=== PATIENT | female | born 1950 | race Caucasian/White ===

== ENCOUNTER 2019-05-08 05:51 | Inpatient (IN) | payer MEDICARE, OTHER ==
--- NOTE | 2019-05-03 14:40 | PCM.PREANE ---
Preanesthetic Assessment - Anesthesia/Transfusion/Family Hx Anesthesia History: Prior Anesthesia Without Reaction Family History of Anesthesia Reaction: No Transfusion History: No Prior Transfusion(s) Intubation History: Unknown - Review of Systems General: No Symptoms Pulmonary: No Symptoms ([id number] socially, has not used albuterol inhaler for over a year.) Cardiovascular: No Symptoms (History of HTN, Pacemaker, and atrial fibrillation- on eliquis(last dose:05/05/2019 ), History of nonischemic cardiomyopathy( echocardiogram EF=45%, History of pulmonary hypertension, History of ostium secundum atrial septal defect s/p clsure with Amplater device in 2002) Gastrointestinal: No Symptoms (GERD-controlled) Neurological: No Symptoms, Headache (Migraines) Other: Reports: Easy Bleeding, Easy Bruising, Sinus Problem (seasonal allergies) - Physical Assessment NPO Status Date: 05/07/19 NPO Status Time: 18:00 Vital Signs: HR: BP: Resp: Temp: Sat: Height: 1.78 m Weight: 119 kg ASA Class: 3 Mental Status: Alert & Oriented x3 Airway Class: Mallampati = 2 Dentition: Reports: Normal Dentition, Caries Thyro-Mental Finger Breadths: 3 Mouth Opening Finger Breadths: 3 ROM/Head Extension: Full Lungs: Clear to Auscultation, Normal Respiratory Effort Cardiovascular: Regular Rate, Regular Rhythm, No Murmurs - Lab Values: Laboratory Last Values MRSA (PCR) Negative 04/25/19 11:27 All labs reviewed and noted and within acceptable ranges to proceed with scheduled procedure. - Imaging/EKG Impressions: EKG:Ventricularly paced rate= 70. Echocardiogram:EF= 45%, Moderate tricuspid valve regurgitation, severe biatrial dilation. CXR: Mild cardiomegaly, small hiatal hernia, pacemaker noted. - Allergies Allergies/Adverse Reactions: Allergies Allergy/AdvReac Type Severity Reaction Status Date / Time cephalexin Allergy Rash Verified 05/04/19 11:26 codeine Allergy Other Verified 05/04/19 11:26 hydrocodone Allergy Other Verified 05/04/19 11:26 modafinil [From Provigil] Allergy Other Verified 05/04/19 11:26 mupirocin Allergy Other Verified 05/04/19 11:26 oxycodone Allergy Other Verified 05/04/19 11:26 pramipexole Allergy Cannot Verified 05/04/19 11:26 Remember ropinirole Allergy Cannot Verified 05/04/19 11:26 Remember Sulfa (Sulfonamide Allergy Rash Verified 05/04/19 11:27 Antibiotics) - Anesthesia Plan Pre-Op Medication Ordered: Beta Nikhil Beta Nikhil: Metoprolol Med Last Dose Date: 05/08/19 Med Last Dose Time: 04:10 - Acknowledgements Anesthesia Type Planned: General Anesthesia, Spinal (Right adductor canal block under US guidance for post operative pain control requested by Dr. Jimenes.) Pt an Appropriate Candidate for the Planned Anesthesia: Yes Alternatives and Risks of Anesthesia Discussed w Pt/Guardian: Yes Pt/Guardian Understands and Agrees with Anesthesia Plan: Yes PreAnesthesia Questionnaire HEENT History: Reports: Allergic Rhinitis Cardiovascular History: Reports: Afib, Cardiomyopathy, Congenital Septal Defect , Hypertension, Pacemaker, Pulmonary Hypertension Respiratory History: Reports: Sleep Apnea Gastrointestinal History: Reports: GERD Musculoskeletal History: Reports: Osteoarthritis - Past Surgical History HEENT Surgical History: Reports: Tonsillectomy Cardiovascular Surgical History: Reports: Pacer, Other (See Below) (Repair of congenital septal defect) GI Surgical History: Reports: Appendectomy Female Surgical History: Reports: Hysterectomy, Tubal Ligation - HOME MEDS Home Medications: Home Meds Acetaminophen [Tylenol Arthritis] 650 mg PO DAILY 05/04/19 [History] Amoxicillin 500 mg PO ASDIRECTED PRN 05/04/19 [History] Apixaban [Eliquis] 5 mg PO BID 05/04/19 [History] Famotidine [Pepcid] 20 mg PO BEDTIME 05/04/19 [History] Loratadine [Claritin] 10 mg PO DAILY 05/04/19 [History] Melatonin 10 mg PO 1900 05/04/19 [History] Metoprolol Succinate 25 mg PO DAILY 05/04/19 [History] Pantoprazole Sodium [Protonix] 40 mg PO DAILY 05/04/19 [History] SUMAtriptan [Imitrex] 25 mg PO ASDIRECTED PRN 05/04/19 [History] Vitamin B Complex 1 tab PO DAILY 05/04/19 [History] atorvaSTATin [Lipitor] 10 mg PO BEDTIME 05/04/19 [History] - CURRENT (IN HOUSE) MEDS Current Meds: Current Medications Lactated Ringer's (Ringers, Lactated) 1,000 mls @ 125 mls/hr IV ASDIRECTED SARATH Lidocaine/Sodium Bicarbonate (Buffered Lidocaine 1% In Ns 8.4%) 0.25 ml IDERM ONETIME PRN PRN Reason: Prior to IV Start Sodium Chloride (Saline Flush) 10 ml FLUSH ASDIRECTED PRN PRN Reason: Keep Vein Open
[~2019-05-08 05:51] MED LIST: Albuterol 0.083% 2.5 MG/3 ML Neb Soln NEB ONE; Lactated Ringers 1,000 ML IV SCH; Lidocaine 1%/Sod Bicarbonate in NS 8.4% 1 ML Syringe IDERM PRN; Sodium Chloride 0.9% 10 ML Syringe FLUSH PRN
[2019-05-08] MEDS ORDERED: Bisacodyl 5 MG Tab PO PRN (06:45)
[2019-05-08] MEDS ORDERED: Sennosides 8.6 MG Tab PO PRN (06:45)
[2019-05-08] MEDS ORDERED: Naloxone 0.4 MG/ML SDV IVPUSH PRN (06:45)
[2019-05-08] MEDS ORDERED: Magnesium Hydroxide 400 MG/5 ML Susp 30 ML Cup PO PRN (06:45)
[2019-05-08] MEDS ORDERED: Ondansetron 4 MG/2 ML SDV IVPUSH PRN ×2 (06:45→07:37)
[2019-05-08] MEDS ORDERED: fentaNYL 100 MCG/2 ML SDV IVPUSH PRN (07:37)
[2019-05-08] MEDS ORDERED: ePHEDrine 50 MG/ML SDV IVPUSH PRN (07:37)
[2019-05-08] MEDS ORDERED: HYDROmorphone 0.5 MG/0.5 ML Syringe IVPUSH PRN (07:37)
[2019-05-08] MEDS ORDERED: diphenhydrAMINE 50 MG/ML SDV IVPUSH PRN (07:37)
[2019-05-08] MEDS ORDERED: Morphine 8 MG, EPINEPHrine 0.3 MG, Cefuroxime 750 MG, Ketorolac 30 MG, Sodium Chloride ... ONE ×5 (07:45)
[2019-05-08] MEDS ORDERED: Phenylephrine 1 MG in Sodium Chloride 0.9% 10 ML IV SCH (07:45)
--- NOTE | 2019-05-08 09:06 | PCM.POSTAN ---
POST ANESTHESIA ASSESSMENT - MENTAL STATUS Mental Status: Alert - VITAL SIGNS Vital Signs: Last Vital Signs Temp 98.0f 05/08/19 08 Pulse 71 05/08/19 0856 Resp 14 05/08/19 0856 BP 110/57 05/08/19 0856 Pulse Ox 94% 05/08/19 08 - RESPIRATORY Respiratory Status: Respiratory Rate WNL, Airway Patent, O2 Saturation Stable, Supplemental Oxygen - CARDIOVASCULAR CV Status: Pulse Rate WNL, Blood Pressure Stable - GASTROINTESTINAL GI Status: No Symptoms - POST OP HYDRATION Hydration Status: Adequate & Stable
--- NOTE | 2019-05-08 09:44 | PCM.SN ---
- Free Text/Narrative Note: Right selective femoral nerve block at the adductor canal for post-procedure pain control under US guidance requested by Dr. Jimenes. Time Out: 908 Start: 908 End: 916 Chart reviewed. Consent signed. Questions answered. Appropriate monitors applied. Time out performed. Right mid-shaft femur identified with ultrasound, scanning medially of femur, the femoral artery in the adductor canal visualized , and the femoral nerve located laterally to the artery. The skin was prepped lateral to the ultrasound probe with chlorahexadine times two. The 21ga 4 insulated block needle was inserted under direct ultrasound guidance into the adductor canal. 25mL of 0.5% ropivacaine with 1:200,000 epinephrine was injected circumferentially around the nerve with intermittent negative aspiration noted. Patient tolerated the procedure well. Sterile technique noted along with sterile gloves, mask, and sterile probe cover. See picture on progress note and vital signs on nurses notes. Block completed in PACU. Raisa Vasquez CRNA
[2019-05-08] MEDS: Ketorolac 15 MG/ML SDV IVPUSH PRN ×2 (11:05→22:54)
[2019-05-08] MEDS: Cyclobenzaprine 10 MG Tab PO PRN (11:05)
[2019-05-08] MEDS: Morphine 2 MG/ML Syringe IVPUSH PRN ×3 (12:33→20:21)
[2019-05-08] MEDS: Acetaminophen 325 MG Tab PO PRN ×2 (12:35→18:39)
[2019-05-08] MEDS: ceFAZolin 2 GM in Premix Bag 1 BAG IV SCH ×2 (14:39→22:55)
[2019-05-08] MEDS ORDERED: SUMAtriptan 50 MG Tab PO PRN (14:42)
[2019-05-08] MEDS ORDERED: AMOXICILLIN 500 MG PO PRN (14:42)
--- NOTE | 2019-05-08 16:36 | PCM.CONS ---
H&P History of Present Illness - General Date of Service: 05/08/19 Admit Problem/Dx: Admission Diagnosis/Problem Admission Diagnosis/Problem Osteoarthritis of knee Source of Information: Patient History Limitations: Reports: No Limitations - History of Present Illness Initial Comments - Free Text/Narative: The hospitalist medical service was consulted on this 68-year old female post right total knee arthroplasty. Medical conditions include chronic atrial fibrillation with an AV navneet ablation with single-chamber pacemaker implantation at [facility] due to difficult rate control in 2003, on Eliquis, non- ischemic cardiomyopathy, not on an LUIS/ARB due to hypotension, dyslipidemia, ostium second atrial septal defect S/P closure with Amplatzer device in [address] [facility], pulmonary hypertension, ARAVIND on CPAP, chronic lower extremity edema , bilateral knee osteoarthritis. Lis is without any complaints other than right knee pain post surgery. Eliquis was held 2 days prior to surgery per her metal fabricating inspector Dr. Herman. Per his notes her functional status is probably around 5 METS and her overall cardiac risk is low. EKG showed a ventricular paced rhythm at 70 bpm. Echocardiogram on May 03, 2019: 1. Left ventricular ejection fraction, by visual estimation, is 45%. 2. Mildly decreased and global left ventricular systolic function. 3. The left ventricular internal cavity size is dilated in systole. 4. No aortic valve stenosis. 5. Mild mitral valve regurgitation. 6. Moderate tricuspid valve regurgitation. 7. The right ventricular systolic pressure is borderline at 37.2 mmHg. 8. A pacer wire is visualized in the right ventricle. 9. There is severe biatrial dilatation. Right Knee Pain Score (Numeric/FACES): 0 - Related Data Allergies/Adverse Reactions: Allergies Allergy/AdvReac Type Severity Reaction Status Date / Time cephalexin Allergy Rash Verified 05/08/19 08:03 pramipexole Allergy Cannot Verified 05/04/19 11:26 Remember ropinirole Allergy Cannot Verified 05/04/19 11:26 Remember Sulfa (Sulfonamide Allergy Rash Verified 05/04/19 11:27 Antibiotics) codeine AdvReac Other Verified 05/08/19 08:04 hydrocodone AdvReac Other Verified 05/08/19 08:04 modafinil [From Provigil] AdvReac Other Verified 05/08/19 08:04 mupirocin AdvReac Other Verified 05/08/19 08:04 oxycodone AdvReac Other Verified 05/08/19 08:04 Home Medications: Home Meds Acetaminophen [Tylenol Arthritis] 650 mg PO DAILY PRN 05/04/19 [History] Amoxicillin 500 mg PO ASDIRECTED PRN 05/04/19 [History] Apixaban [Eliquis] 5 mg PO BID 05/04/19 [History] Famotidine [Pepcid] 20 mg PO BEDTIME 05/04/19 [History] Loratadine [Claritin] 10 mg PO DAILY 05/04/19 [History] Melatonin 10 mg PO 1900 05/04/19 [History] Metoprolol Succinate 25 mg PO DAILY 05/04/19 [History] Pantoprazole Sodium [Protonix] 40 mg PO DAILY 05/04/19 [History] SUMAtriptan [Imitrex] 25 mg PO ASDIRECTED PRN 05/04/19 [History] Vitamin B Complex 2 tab PO DAILY 05/04/19 [History] atorvaSTATin [Lipitor] 10 mg PO BEDTIME 05/04/19 [History] Past Medical History HEENT History: Reports: Allergic Rhinitis Cardiovascular History: Reports: Afib, Cardiomyopathy, Congenital Septal Defect , Hypertension, Pacemaker, Pulmonary Hypertension Other Cardiovascular History: Non-ischemic cardiomyopathy, chronic lower extremity edema Respiratory History: Reports: Bronchitis, Recurrent, Pneumonia, Recurrent, Sleep Apnea Other Respiratory History: gets pneumonia and bronchitis every year Gastrointestinal History: Reports: GERD Other Gastrointestinal History: Biju's esophagus, gatric ulcer Genitourinary History: Reports: None Other OB/BYN History: Vaginal atrophy Musculoskeletal History: Reports: Osteoarthritis Neurological History: Reports: Migraines, Other (See Below) Other Neuro History: Restless leg syndrome Psychiatric History: Reports: Other (See Below) Other Psychiatric History: Insomnia Endocrine/Metabolic History: Reports: Other (See Below) Other Endocrine/Metabolic History: Left thyroid nodule Hematologic History: Reports: None Immunologic History: Reports: None Oncologic (Cancer) History: Reports: None Dermatologic History: Reports: None - Past Surgical History Head Surgeries/Procedures: Reports: None HEENT Surgical History: Reports: Naso-Sinus Surgery, Tonsillectomy Cardiovascular Surgical History: Reports: Pacer, Other (See Below) Other Cardiovascular Surgeries/Procedures: Ostium secundum atrial septal defect s/p closure with Amplatzer device in [address] [facility] GI Surgical History: Reports: Appendectomy, Colonoscopy Other GI Surgeries/Procedures: Inguinal hernia repair Female Surgical History: Reports: Hysterectomy, Tubal Ligation Endocrine Surgical History: Reports: None Neurological Surgical History: Reports: None Oncologic Surgical History: Reports: None Dermatological Surgical History: Reports: None Social & Family History - Tobacco Use Smoking Status *Q: Never Smoker Second Hand Smoke Exposure: No - Caffeine Use Caffeine Use: Reports: None Caffeine Use Comment: Patient states it makes her heart race - Recreational Drug Use Recreational Drug Use: No Drug Use in Last 12 Months: No H&P Review of Systems - Review of Systems: Review Of Systems: ROS reveals no pertinent complaints other than HPI. Exam - Exam Exam: See Below - Vital Signs Vital Signs: Last Vital Signs Temp 97.3 F 05/08/19 10:04 Pulse 72 05/08/19 13:02 Resp 16 05/08/19 10:04 BP 119/51 L 05/08/19 13:30 Pulse Ox 93 L 05/08/19 13:02 Weight: 261 lb - Exam Quality Assessment: No: Supplemental Oxygen General: Alert, Oriented HEENT: Conjunctiva Clear, Mucosa Moist & [place] Neck: Supple, Trachea Midline Lungs: Clear to Auscultation, Normal Respiratory Effort Cardiovascular: Regular Rate, Regular Rhythm, Normal S1, Normal S2 GI/Abdominal Exam: Normal Bowel Sounds, Soft, Non-Tender, No Organomegaly, No Distention, No Abnormal Bruit, No Mass Extremities: Other (right knee and leg in luis wrap; SCDs in place) Neuro Extensive - Mental Status: Alert, Oriented x3 Neuro Extensive - Motor, Sensory, Reflexes: CN II-XII Intact Psychiatric: Alert, Normal Affect, Normal Mood - Patient Data Lab Results Last 24 hrs: Laboratory Results - last 24 hr 05/08/19 Range/Units 06:22 APTT 26 (22-31) SECONDS Consult PN Assessment/Plan Procedures: Procedures ASSAY OF FREE THYROXINE (04/11/19) ASSAY OF MAGNESIUM (04/11/19) ASSAY THYROID STIM HORMONE (04/11/19) C-REACTIVE PROTEIN (12/27/17) CHEST X-RAY 2VW FRONTAL&LATL (01/28/17) COMPLETE CBC W/AUTO DIFF WBC (04/11/19) COMPREHEN METABOLIC PANEL (04/11/19) CULTURE SCREEN ONLY (06/07/17) EMERGENCY DEPT VISIT (05/03/14) INFLUENZA A/B AG IA (08/08/14) LIPID PANEL (04/11/19) POLYSOM 6/> YRS 4/> MIGUELANGEL (10/02/17) POLYSOM 6/>YRS CPAP 4/> PARM (12/13/13) PROTHROMBIN TIME (04/11/19) ROUTINE VENIPUNCTURE (04/11/19) STREP A AG IA (06/07/17) THROMBOPLASTIN TIME PARTIAL (07/22/14) TTE W/DOPPLER COMPLETE (05/03/19) URINALYSIS AUTO W/SCOPE (02/03/18) URINE CULTURE/COLONY COUNT (02/03/18) US EXAM OF HEAD AND NECK (08/11/17) X-RAY EXAM CHEST 2 VIEWS (04/11/19) Problem List Initiated/Reviewed/Updated: Yes Plan: Assessment * 58-year-old female post right total knee replacement * Medical conditions include chronic atrial fibrillation with an AV navneet ablation with single-chamber pacemaker implantation at [facility] due to difficult rate control in 2003, on Eliquis, non-ischemic cardiomyopathy, not on an LUIS/ ARB due to hypotension, dyslipidemia, ostium second atrial septal defect S/P closure with Amplatzer device in [address] [facility], pulmonary hypertension, ARAVIND on CPAP, chronic lower extremity edema, bilateral knee osteoarthritis. Plan * Monitor patient on telemetry. * Restart Eliquis as soon as possible per primary care team. * Restart home meds. * Hospitalist service will follow closely. * pain medication per primary orthopedic team * Incentive spirometry to bedside. * Thank you for allowing us to help care for this patient. Requesting Provider: Yudy Date Consult Requested: 05/08/19 Reason for Consult: a-fib, ARAVIND, hx ASD closed in 2002 at [facility], pacemaker, LV EF 45-50 Patient History Reviewed: Yes Admission H&P Reviewed: Yes Notified Requestor: Yes
[2019-05-08] MEDS ORDERED: Melatonin 3 MG Tab PO SCH (19:00)
[2019-05-08] MEDS: Docusate Sodium 100 MG Cap PO SCH (20:21)
[2019-05-08] MEDS ORDERED: Famotidine 20 MG Tab PO SCH ×2 (21:00)
[2019-05-09] MEDS: Ketorolac 15 MG/ML SDV IVPUSH PRN (05:00)
[2019-05-09] MEDS: Cyclobenzaprine 10 MG Tab PO PRN (05:01)
[2019-05-09] MEDS: ceFAZolin 2 GM in Premix Bag 1 BAG IV SCH ×2 (06:10→06:39)
--- NOTE | 2019-05-09 08:08 | PCM48HPAN ---
Post Anesthesia Note - EVALUATION WITHIN 48HRS OF ANESTHETIC Vital Signs in Normal Range: Yes Patient Participated in Evaluation: Yes Respiratory Function Stable: Yes Airway Patent: Yes Cardiovascular Function Stable: Yes Hydration Status Stable: Yes Pain Control Satisfactory: No (pt states pain 8 out of 10, ultrasound present looking at right leg) Nausea and Vomiting Control Satisfactory: Yes Mental Status Recovered: Yes Vital Signs: Last Vital Signs Temp 36.8 C 05/09/19 01:50 Pulse 74 05/09/19 01:50 Resp 16 05/09/19 01:50 BP 122/90 05/09/19 01:50 Pulse Ox 92 L 05/09/19 02:35
[2019-05-09] MEDS ORDERED: Vitamin B Complex With Vitamin C Cap PO SCH (09:00)
[2019-05-09] MEDS ORDERED: Pantoprazole 40 MG Tab.CR PO SCH (09:00)
[2019-05-09] MEDS ORDERED: Loratadine 10 MG Tab PO SCH (09:00)
[2019-05-09] MEDS ORDERED: Metoprolol Succinate 25 MG Tab.ER PO SCH (09:00)
[2019-05-09] MEDS ORDERED: Apixaban 5 MG Tab PO SCH (09:00)
--- NOTE | 2019-05-09 09:04 | US ---
Right lower extremity deep venous ultrasound: Duplex and color flow imaging was obtained of the right common femoral, proximal greater saphenous, superficial femoral, popliteal, posterior tibial and peroneal veins. Left common femoral vein was also evaluated. Normal phasic flow, augmentation and compression is seen. Impression: 1. No evidence of deep venous thrombosis within the right lower extremity or within the left common femoral vein. Diagnostic code #1
[2019-05-09] MEDS: Acetaminophen 325 MG Tab PO PRN (09:24)
[2019-05-09] MEDS: Docusate Sodium 100 MG Cap PO SCH (09:25)
--- NOTE | 2019-05-09 09:30 | PCM.SURGPN ---
- General Info Date of Service: 05/09/19 POD#: 1 Functional Status: Reports: Tolerating Diet, Ambulating, Urinating, Incentive Spirometry, Other (Pt very concerned re: "blood clot" at RLE as she notes pain at right popliteal space.) - Patient Data Vitals - Most Recent: Last Vital Signs Temp 98.1 F 05/09/19 09:21 Pulse 82 05/09/19 09:25 Resp 14 05/09/19 09:21 BP 129/61 05/09/19 09:25 Pulse Ox 95 05/09/19 09:22 Weight - Most Recent: 270 lb 11.2 oz I&O - Last 24 Hours: Intake & Output 05/08/19 05/09/19 05/09/19 22:59 06:59 14:59 Intake Total 2450 450 Output Total 500 200 Balance 1950 250 Lab Results Last 24 Hrs: Laboratory Results - last 24 hr 05/09/19 05/09/19 Range/Units 05:26 05:26 WBC 7.00 (3.98-10.04) K/mm3 RBC 3.67 L (3.98-5.22) M/mm3 Hgb 11.3 D (11.2-15.7) gm/dl Hct 34.2 (34.1-44.9) % MCV 93.2 (79.4-94.8) fl MCH 30.8 (25.6-32.2) pg MCHC 33.0 (32.2-35.5) g/dl RDW Std Deviation 44.6 (36.4-46.3) fL Plt Count 143 L (182-369) K/mm3 MPV 10.4 (9.4-12.3) fl Sodium 137 (136-145) mEq/L Potassium 4.2 (3.5-5.1) mEq/L Chloride 103 (98-107) mEq/L Carbon Dioxide 27 (21-32) mEq/L Anion Gap 11.2 (5-15) BUN 17 (7-18) mg/dL Creatinine 0.9 (0.55-1.02) mg/dL Est Cr Clr Drug Dosing 66.49 mL/min Estimated GFR (MDRD) > 60 (>60) mL/min BUN/Creatinine Ratio 18.9 H (14-18) Glucose 116 H (80-115) mg/dL Calcium 9.0 (8.5-10.1) mg/dL Total Bilirubin 0.6 (0.2-1.0) mg/dL AST 20 (15-37) U/L ALT 19 (14-59) U/L Alkaline Phosphatase 70 (46-116) U/L Total Protein 6.2 L (6.4-8.2) g/dl Albumin 3.2 L (3.4-5.0) g/dl Globulin 3.0 gm/dL Albumin/Globulin Ratio 1.1 (1-2) Med Orders - Current: Current Medications Acetaminophen (Tylenol) 650 mg PO Q4H PRN PRN Reason: Pain Last Admin: 05/09/19 09:24 Dose: 650 mg Apixaban (Eliquis) 5 mg PO BID [facility] Last Admin: 05/09/19 09:25 Dose: 5 mg Bisacodyl (Dulcolax) 5 mg PO DAILY PRN PRN Reason: Constipation Cyclobenzaprine HCl (Flexeril) 10 mg PO TID PRN PRN Reason: Spasms Last Admin: 05/09/19 05:01 Dose: 10 mg Docusate Sodium (Colace) 100 mg PO BID [facility] Last Admin: 05/09/19 09:25 Dose: 100 mg Famotidine (Pepcid) 20 mg PO BEDTIME [facility] Last Admin: 05/08/19 20:20 Dose: 20 mg Loratadine (Claritin) 10 mg PO DAILY [facility] Last Admin: 05/09/19 09:25 Dose: 10 mg Magnesium Hydroxide (Milk Of Magnesia) 30 ml PO BID PRN PRN Reason: Constipation Melatonin (Melatonin) 9 mg PO 1900 [facility] Last Admin: 05/08/19 18:39 Dose: 9 mg Metoprolol Succinate (Toprol Xl) 25 mg PO DAILY [facility] Last Admin: 05/09/19 09:25 Dose: 25 mg Morphine Sulfate (Morphine) 2 mg IVPUSH Q2H PRN PRN Reason: Pain Last Admin: 05/08/19 20:21 Dose: 2 mg Naloxone HCl (Narcan) 0.1 mg IVPUSH Q5M PRN PRN Reason: Oversedation Ondansetron HCl (Zofran) 4 mg IVPUSH Q6H PRN PRN Reason: Nausea/Vomiting Pantoprazole Sodium (Protonix) 40 mg PO DAILY [facility] Last Admin: 05/09/19 09:25 Dose: 40 mg Senna (Senna) 8.6 mg PO BID PRN PRN Reason: Constipation Sodium Chloride (Saline Flush) 10 ml FLUSH ASDIRECTED PRN PRN Reason: Keep Vein Open Sumatriptan Succinate (Imitrex) 25 mg PO ASDIRECTED PRN PRN Reason: Migraine Tapentadol (Nucynta) 50 - 100 mg PO Q4H PRN PRN Reason: Pain Last Admin: 05/09/19 06:09 Dose: 100 mg Vitamin B Complex/Vitamin C (Super B With Vitamin C) 2 cap PO DAILY [facility] Last Admin: 05/09/19 09:25 Dose: 2 cap Discontinued Medications Albuterol (Proventil Neb Soln) 2.5 mg NEB ONETIME ONE Stop: 05/08/19 00:02 Last Admin: 05/08/19 13:10 Dose: Not Given Morphine Sulfate 8 mg/Epinephrine HCl 0.3 mg/Cefuroxime Sodium 750 mg/Ketorolac Tromethamine 30 mg/Sodium Chloride 27.9 ml 0 mg .XX ONETIME ONE Stop: 05/08/19 07:46 Last Admin: 05/08/19 13:10 Dose: Not Given Diphenhydramine HCl (Benadryl) 25 mg IVPUSH Q6H PRN PRN Reason: pruritis Stop: 05/08/19 11:00 Ephedrine Sulfate (Ephedrine Sulfate) 5 mg IVPUSH ASDIRECTED PRN PRN Reason: Hypotension Stop: 05/08/19 11:00 Famotidine (Pepcid) 20 mg PO Q12H [facility] Fentanyl (Sublimaze) 50 mcg IVPUSH Q5M PRN PRN Reason: Pain Stop: 05/08/19 11:00 Hydromorphone HCl (Dilaudid) 0.5 mg IVPUSH Q15M PRN PRN Reason: Pain (severe 7-10) Stop: 05/08/19 11:00 Lactated Ringer's (Ringers, Lactated) 1,000 mls @ 125 mls/hr IV ASDIRECTED [facility] Last Admin: 05/08/19 06:25 Dose: 125 mls/hr Cefazolin Sodium/Dextrose 2 gm (/ Premix) 50 mls @ 100 mls/hr IV Q8H [facility] Stop: 05/09/19 07:59 Last Admin: 05/09/19 06:39 Dose: Not Given Phenylephrine HCl 1 mg/ Sodium (Chloride) 10.1 mls @ 1 mls/sec IV TITRATE SARATH; Protocol Stop: 05/08/19 11:00 Ketorolac Tromethamine (Toradol) 15 mg IVPUSH Q6H PRN PRN Reason: Pain Last Admin: 05/09/19 05:00 Dose: 15 mg Lidocaine/Sodium Bicarbonate (Buffered Lidocaine 1% In Ns 8.4%) 0.25 ml IDERM ONETIME PRN PRN Reason: Prior to IV Start Last Admin: 05/08/19 06:24 Dose: 0.25 ml Non-Formulary Medication (Amoxicillin [Amoxicillin]) 500 mg PO ASDIRECTED PRN PRN Reason: Other Ondansetron HCl (Zofran) 4 mg IVPUSH ONETIME PRN PRN Reason: Nausea/Vomiting Stop: 05/08/19 11:00 - Exam Wound/Incisions: Other (A few small areas of dried blood noted on Mepilex and area outlined by nurse.) General: Alert, Cooperative, No Acute Distress Lungs: Normal Respiratory Effort Extremities: Other (NVS intact for RLE. Yakov's negative for RLE. Tenderness noted at right lateral hamstring and popliteal space.) - Problem List Review Problem List Initiated/Reviewed/Updated: Yes - My Orders Last 24 Hours: Active Orders 24 hr Category Date Time Status Patient Status [ADT] Routine ADT 05/08/19 16:13 Active Ready for Discharge [RC] PER UNIT ROUTINE Care 05/09/19 07:37 Active Regular Diet [DIET] Diet 05/08/19 Lunch Active Acetaminophen [Tylenol] Med 05/08/19 12:28 Active 650 mg PO Q4H PRN Apixaban [Eliquis] Med 05/09/19 09:00 Active 5 mg PO BID Docusate Sodium [Colace] Med 05/08/19 21:00 Active 100 mg PO BID Famotidine [Pepcid] Med 05/08/19 21:00 Active 20 mg PO BEDTIME Loratadine [Claritin] Med 05/09/19 09:00 Active 10 mg PO DAILY Melatonin Med 05/08/19 19:00 Active 9 mg PO 1900 Metoprolol Succinate [Toprol XL] Med 05/09/19 09:00 Active 25 mg PO DAILY Morphine Med 05/08/19 12:20 Active 2 mg IVPUSH Q2H PRN Pantoprazole [ProTONIX] Med 05/09/19 09:00 Active 40 mg PO DAILY SUMAtriptan [Imitrex] Med 05/08/19 14:42 Active 25 mg PO ASDIRECTED PRN Vitamin B Complex with C [Super B With Vitamin C] Med 05/09/19 09:00 Active 2 cap PO DAILY Resuscitation Status Routine Resus Stat 05/08/19 11:23 Ordered Medication Orders Acetaminophen (Tylenol) 650 mg PO Q4H PRN PRN Reason: Pain Last Admin: 05/09/19 09:24 Dose: 650 mg Admin: 05/08/19 18:39 Dose: 650 mg Admin: 05/08/19 12:35 Dose: 650 mg Apixaban (Eliquis) 5 mg PO BID [facility] Last Admin: 05/09/19 09:25 Dose: 5 mg Bisacodyl (Dulcolax) 5 mg PO DAILY PRN PRN Reason: Constipation Cyclobenzaprine HCl (Flexeril) 10 mg PO TID PRN PRN Reason: Spasms Last Admin: 05/09/19 05:01 Dose: 10 mg Admin: 05/08/19 11:05 Dose: 10 mg Docusate Sodium (Colace) 100 mg PO BID [facility] Last Admin: 05/09/19 09:25 Dose: 100 mg Admin: 05/08/19 20:21 Dose: 100 mg Famotidine (Pepcid) 20 mg PO BEDTIME [facility] Last Admin: 05/08/19 20:20 Dose: 20 mg Loratadine (Claritin) 10 mg PO DAILY [facility] Last Admin: 05/09/19 09:25 Dose: 10 mg Magnesium Hydroxide (Milk Of Magnesia) 30 ml PO BID PRN PRN Reason: Constipation Melatonin (Melatonin) 9 mg PO 1900 [facility] Last Admin: 05/08/19 18:39 Dose: 9 mg Metoprolol Succinate (Toprol Xl) 25 mg PO DAILY [facility] Last Admin: 05/09/19 09:25 Dose: 25 mg Morphine Sulfate (Morphine) 2 mg IVPUSH Q2H PRN PRN Reason: Pain Last Admin: 05/08/19 20:21 Dose: 2 mg Admin: 05/08/19 15:26 Dose: 2 mg Admin: 05/08/19 12:33 Dose: 2 mg Naloxone HCl (Narcan) 0.1 mg IVPUSH Q5M PRN PRN Reason: Oversedation Ondansetron HCl (Zofran) 4 mg IVPUSH Q6H PRN PRN Reason: Nausea/Vomiting Pantoprazole Sodium (Protonix) 40 mg PO DAILY [facility] Last Admin: 05/09/19 09:25 Dose: 40 mg Senna (Senna) 8.6 mg PO BID PRN PRN Reason: Constipation Sodium Chloride (Saline Flush) 10 ml FLUSH ASDIRECTED PRN PRN Reason: Keep Vein Open Sumatriptan Succinate (Imitrex) 25 mg PO ASDIRECTED PRN PRN Reason: Migraine Tapentadol (Nucynta) 50 - 100 mg PO Q4H PRN PRN Reason: Pain Last Admin: 05/09/19 06:09 Dose: 100 mg Admin: 05/09/19 01:25 Dose: 100 mg Vitamin B Complex/Vitamin C (Super B With Vitamin C) 2 cap PO DAILY [facility] Last Admin: 05/09/19 09:25 Dose: 2 cap - Assessment Assessment (Free Text/Narrative):: POD#1 - right TKA - Plan Plan (Free Text/Narrative):: 1. Resume use of Eliquis BID. Frequent mobility, TEDs. 2. Discharge to home today if cleared by Hospitalist service. 3. RLE venous doppler completed today as pt very concerned re: "blood clot". Doppler negative for VTE. 4. Hgb 11.3. 5. The pt is aware of cost of Nucynta. She reports allergy to other pain medications. The pt's case was discussed with Dr. Jimenes.
--- NOTE | 2019-05-09 12:10 | PCM.CONSN ---
- General Info Date of Service: 05/09/19 Admission Dx/Problem (Free Text): Admission Diagnosis/Problem Admission Diagnosis/Problem Osteoarthritis of knee - Review of Systems General: Reports: No Symptoms HEENT: Reports: No Symptoms Pulmonary: Reports: No Symptoms Cardiovascular: Reports: No Symptoms Gastrointestinal: Reports: No Symptoms - Patient Data Vitals - Most Recent: Last Vital Signs Temp 98.1 F 05/09/19 09:21 Pulse 82 05/09/19 09:25 Resp 14 05/09/19 09:21 BP 129/61 05/09/19 09:25 Pulse Ox 95 05/09/19 09:22 Weight - Most Recent: 270 lb 11.2 oz I&O - Last 24 Hours: Intake & Output 05/08/19 05/09/19 05/09/19 22:59 06:59 14:59 Intake Total 2450 450 120 Output Total 500 200 Balance 1950 250 120 Lab Results Last 24 Hours: Laboratory Results - last 24 hr 05/09/19 05/09/19 Range/Units 05:26 05:26 WBC 7.00 (3.98-10.04) K/mm3 RBC 3.67 L (3.98-5.22) M/mm3 Hgb 11.3 D (11.2-15.7) gm/dl Hct 34.2 (34.1-44.9) % MCV 93.2 (79.4-94.8) fl MCH 30.8 (25.6-32.2) pg MCHC 33.0 (32.2-35.5) g/dl RDW Std Deviation 44.6 (36.4-46.3) fL Plt Count 143 L (182-369) K/mm3 MPV 10.4 (9.4-12.3) fl Sodium 137 (136-145) mEq/L Potassium 4.2 (3.5-5.1) mEq/L Chloride 103 (98-107) mEq/L Carbon Dioxide 27 (21-32) mEq/L Anion Gap 11.2 (5-15) BUN 17 (7-18) mg/dL Creatinine 0.9 (0.55-1.02) mg/dL Est Cr Clr Drug Dosing 66.49 mL/min Estimated GFR (MDRD) > 60 (>60) mL/min BUN/Creatinine Ratio 18.9 H (14-18) Glucose 116 H (80-115) mg/dL Calcium 9.0 (8.5-10.1) mg/dL Total Bilirubin 0.6 (0.2-1.0) mg/dL AST 20 (15-37) U/L ALT 19 (14-59) U/L Alkaline Phosphatase 70 (46-116) U/L Total Protein 6.2 L (6.4-8.2) g/dl Albumin 3.2 L (3.4-5.0) g/dl Globulin 3.0 gm/dL Albumin/Globulin Ratio 1.1 (1-2) Med Orders - Current: Current Medications Acetaminophen (Tylenol) 650 mg PO Q4H PRN PRN Reason: Pain Last Admin: 05/09/19 09:24 Dose: 650 mg Apixaban (Eliquis) 5 mg PO BID [facility] Last Admin: 05/09/19 09:25 Dose: 5 mg Bisacodyl (Dulcolax) 5 mg PO DAILY PRN PRN Reason: Constipation Cyclobenzaprine HCl (Flexeril) 10 mg PO TID PRN PRN Reason: Spasms Last Admin: 05/09/19 05:01 Dose: 10 mg Docusate Sodium (Colace) 100 mg PO BID [facility] Last Admin: 05/09/19 09:25 Dose: 100 mg Famotidine (Pepcid) 20 mg PO BEDTIME [facility] Last Admin: 05/08/19 20:20 Dose: 20 mg Loratadine (Claritin) 10 mg PO DAILY [facility] Last Admin: 05/09/19 09:25 Dose: 10 mg Magnesium Hydroxide (Milk Of Magnesia) 30 ml PO BID PRN PRN Reason: Constipation Melatonin (Melatonin) 9 mg PO 1900 [facility] Last Admin: 05/08/19 18:39 Dose: 9 mg Metoprolol Succinate (Toprol Xl) 25 mg PO DAILY [facility] Last Admin: 05/09/19 09:25 Dose: 25 mg Morphine Sulfate (Morphine) 2 mg IVPUSH Q2H PRN PRN Reason: Pain Last Admin: 05/08/19 20:21 Dose: 2 mg Naloxone HCl (Narcan) 0.1 mg IVPUSH Q5M PRN PRN Reason: Oversedation Ondansetron HCl (Zofran) 4 mg IVPUSH Q6H PRN PRN Reason: Nausea/Vomiting Pantoprazole Sodium (Protonix) 40 mg PO DAILY [facility] Last Admin: 05/09/19 09:25 Dose: 40 mg Senna (Senna) 8.6 mg PO BID PRN PRN Reason: Constipation Sodium Chloride (Saline Flush) 10 ml FLUSH ASDIRECTED PRN PRN Reason: Keep Vein Open Sumatriptan Succinate (Imitrex) 25 mg PO ASDIRECTED PRN PRN Reason: Migraine Tapentadol (Nucynta) 50 - 100 mg PO Q4H PRN PRN Reason: Pain Last Admin: 05/09/19 10:23 Dose: 100 mg Vitamin B Complex/Vitamin C (Super B With Vitamin C) 2 cap PO DAILY [facility] Last Admin: 05/09/19 09:25 Dose: 2 cap Discontinued Medications Albuterol (Proventil Neb Soln) 2.5 mg NEB ONETIME ONE Stop: 05/08/19 00:02 Last Admin: 05/08/19 13:10 Dose: Not Given Morphine Sulfate 8 mg/Epinephrine HCl 0.3 mg/Cefuroxime Sodium 750 mg/Ketorolac Tromethamine 30 mg/Sodium Chloride 27.9 ml 0 mg .XX ONETIME ONE Stop: 05/08/19 07:46 Last Admin: 05/08/19 13:10 Dose: Not Given Diphenhydramine HCl (Benadryl) 25 mg IVPUSH Q6H PRN PRN Reason: pruritis Stop: 05/08/19 11:00 Ephedrine Sulfate (Ephedrine Sulfate) 5 mg IVPUSH ASDIRECTED PRN PRN Reason: Hypotension Stop: 05/08/19 11:00 Famotidine (Pepcid) 20 mg PO Q12H [facility] Fentanyl (Sublimaze) 50 mcg IVPUSH Q5M PRN PRN Reason: Pain Stop: 05/08/19 11:00 Hydromorphone HCl (Dilaudid) 0.5 mg IVPUSH Q15M PRN PRN Reason: Pain (severe 7-10) Stop: 05/08/19 11:00 Lactated Ringer's (Ringers, Lactated) 1,000 mls @ 125 mls/hr IV ASDIRECTED [facility] Last Admin: 05/08/19 06:25 Dose: 125 mls/hr Cefazolin Sodium/Dextrose 2 gm (/ Premix) 50 mls @ 100 mls/hr IV Q8H SARATH Stop: 05/09/19 07:59 Last Admin: 05/09/19 06:39 Dose: Not Given Phenylephrine HCl 1 mg/ Sodium (Chloride) 10.1 mls @ 1 mls/sec IV TITRATE SARATH; Protocol Stop: 05/08/19 11:00 Ketorolac Tromethamine (Toradol) 15 mg IVPUSH Q6H PRN PRN Reason: Pain Last Admin: 05/09/19 05:00 Dose: 15 mg Lidocaine/Sodium Bicarbonate (Buffered Lidocaine 1% In Ns 8.4%) 0.25 ml IDERM ONETIME PRN PRN Reason: Prior to IV Start Last Admin: 05/08/19 06:24 Dose: 0.25 ml Non-Formulary Medication (Amoxicillin [Amoxicillin]) 500 mg PO ASDIRECTED PRN PRN Reason: Other Ondansetron HCl (Zofran) 4 mg IVPUSH ONETIME PRN PRN Reason: Nausea/Vomiting Stop: 05/08/19 11:00 - Exam General: Alert, Oriented HEENT: Pupils Equal, Mucous Membr. Moist/[place] Neck: Supple Lungs: Clear to Auscultation, Normal Respiratory Effort Cardiovascular: Regular Rate, Regular Rhythm GI/Abdominal Exam: Normal Bowel Sounds, Soft, Non-Tender, No Organomegaly, No Distention, No Abnormal Bruit, No Mass Skin: Warm Neurological: No New Focal Deficit Psy/Mental Status: Alert, Normal Affect, Normal Mood Consult PN Assessment/Plan Procedures: Procedures ASSAY OF FREE THYROXINE (04/11/19) ASSAY OF MAGNESIUM (04/11/19) ASSAY THYROID STIM HORMONE (04/11/19) C-REACTIVE PROTEIN (12/27/17) CHEST X-RAY 2VW FRONTAL&LATL (01/28/17) COMPLETE CBC W/AUTO DIFF WBC (04/11/19) COMPREHEN METABOLIC PANEL (04/11/19) CULTURE SCREEN ONLY (06/07/17) EMERGENCY DEPT VISIT (05/03/14) INFLUENZA A/B AG IA (08/08/14) LIPID PANEL (04/11/19) POLYSOM 6/> YRS 4/> MIGUELANGEL (10/02/17) POLYSOM 6/>YRS CPAP 4/> PARM (12/13/13) PROTHROMBIN TIME (04/11/19) ROUTINE VENIPUNCTURE (04/11/19) STREP A AG IA (06/07/17) THROMBOPLASTIN TIME PARTIAL (07/22/14) TTE W/DOPPLER COMPLETE (05/03/19) URINALYSIS AUTO W/SCOPE (02/03/18) URINE CULTURE/COLONY COUNT (02/03/18) US EXAM OF HEAD AND NECK (08/11/17) X-RAY EXAM CHEST 2 VIEWS (04/11/19) Problem List Initiated/Reviewed/Updated: Yes Plan: Assessment * 58-year-old female post right total knee replacement * Medical conditions include chronic atrial fibrillation with an AV navneet ablation with single-chamber pacemaker implantation at [place] due to difficult rate control in 2003, on Eliquis, non-ischemic cardiomyopathy, not on an LUIS/ ARB due to hypotension, dyslipidemia, ostium second atrial septal defect S/P closure with Amplatzer device in 2002 at [facility], pulmonary hypertension, ARAVIND on CPAP, chronic lower extremity edema, bilateral knee osteoarthritis. Plan * Patient is ready for discharge per hospitalist service. * pain medication per primary orthopedic team * Thank you for allowing us to help care for this patient.
--- NOTE | 2019-05-11 11:08 | PCM.OPNOTE ---
- General Post-Op/Procedure Note Date of Surgery/Procedure: 05/08/19 Operative Procedure(s): right total knee arthroplasty Pre Op Diagnosis: right knee osteoarthrosis Post-Op Diagnosis: Same Anesthesia Technique: Local, MAC, Spinal Primary Surgeon: Miky Jimenes Anesthesia Provider: Raisa Vasquez Vp Sales: Johana Fitzpatrick Vp Sales: Valeria Fernando in mLs: 5 Complications: None Condition: Good Free Text/Narrative:: size 5/5 9mm 32x10
--- NOTE | 2019-05-11 11:16 | PCM.DCSUM1 ---
Discharge Summary - Hospital Course Brief History: Lis is a 68 yo female who underwent right TKA with Dr. Jimenes on . The procedure was completed under spinal anesthesia with MAC. The pt tolerated the procedure well and was admitted to the Medical-Surgical unit. The pt received Ancef claudy-operatively. She participated in P.T. and O.T. and progressed well. She was allowed to WBAT and used a FWW for mobility. The pt' s surgical wound was dressed with a Mepilex dressing and remained clean and dry. On POD#1, the pt resumed use of Eliquis BID for VTE prophylaxis. The pt used TEDs and SCDs also. On POD#1, the pt's hemoglobin was 11.3. On POD#1, the pt was deemed appropriate for discharge to home. - Discharge Data Discharge Date: 05/09/19 Discharge Disposition: Home, Self-Care 01 Condition: Good - Referral to Home Health Primary Care Physician: PCP Unknown - Patient Summary/Data Operative Procedure(s) Performed: right total knee arthroplasty Consults: Consultations 05/08/19 06:43 OT Evaluation and Treatment [CONS] Routine PT Evaluation and Treatment [CONS] Routine 05/08/19 06:45 Consult to Physician [CONS] Routine - Patient Instructions Diet: Usual Diet as Tolerated Activity: Apply Ice, As Tolerated, Elevate Extremity, No Lifting Over 20 Pounds Driving: Do Not Drive Showering/Bathing: May Shower Wound/Incision Care: Keep Operative Site/Wound Site Clean and Dry, Do NOT Change Dressing Notify Provider of: Fever, Increased Pain, Swelling and Redness, Drainage, Nausea and/or Vomiting Other/Special Instructions: Please get up and moving around EVERY HOUR while awake. This helps to prevent blood clots. Please use your walker and have help with mobility as needed. Take a short walk in your home every hour while awake. Please take the Eliquis medication twice daily as directed. At home, please complete the exercises that you learned during the Hospital stay. Schedule for physical therapy. Use the pain medication as needed. The medication may cause drowsiness and constipation. Contact your primary care provider for instructions if you are constipated. You may use a stool softener like docusate sodium or Colace 100mg twice daily and/or a laxative like Miralax daily for constipation. Increase your water and fiber intake while you are using the pain medication. Discontinue use of the pain medication as soon as able. Please do not use other medications that may cause drowsiness (other pain medications, anxiety pills, cold medications, sleeping pills, etc) while using the prescription pain medication. Do not use alcohol while using the pain medication. You may use acetaminophen or Tylenol for pain management, however, please ensure you are not using over 4000 mg or 4 grams of acetaminophen per day from all sources. Your pain medication has 325mg of acetaminophen per tablet. Wear the ROSE hose during the day and you may remove these at night. Elevate the limb to decrease swelling. Place ice to the area often. Place a towel between your skin and the blue pad. Use the incentive spirometer often. Take deep breaths throughout the day. Please keep the dressing in place until follow-up. Notify the Clinic if the dressing becomes saturated. Increase your protein intake while you are healing. If you have diabetes, please closely monitor your blood sugars and notify your primary care provider with abnormal values. Elevated blood sugars increases the risk of infection. Call the Clinic with questions or concerns - [phone]. - Discharge Plan *PRESCRIPTION DRUG MONITORING PROGRAM REVIEWED*: No *COPY OF PRESCRIPTION DRUG MONITORING REPORT IN PATIENT JULIÁN: No Prescriptions/Med Rec: Cyclobenzaprine [Flexeril] 10 mg PO BID PRN #40 tablet PRN Reason: Spasms Tapentadol [Nucynta] 50 - 100 mg PO Q4H PRN #60 tablet PRN Reason: Pain Home Medications: Home Meds Acetaminophen [Tylenol Arthritis] 650 mg PO DAILY PRN 05/04/19 [History] Amoxicillin 500 mg PO ASDIRECTED PRN 05/04/19 [History] Apixaban [Eliquis] 5 mg PO BID 05/04/19 [History] Famotidine [Pepcid] 20 mg PO BEDTIME 05/04/19 [History] Loratadine [Claritin] 10 mg PO DAILY 05/04/19 [History] Melatonin 10 mg PO 1900 05/04/19 [History] Metoprolol Succinate 25 mg PO DAILY 05/04/19 [History] Pantoprazole Sodium [Protonix] 40 mg PO DAILY 05/04/19 [History] SUMAtriptan [Imitrex] 25 mg PO ASDIRECTED PRN 05/04/19 [History] Vitamin B Complex 2 tab PO DAILY 05/04/19 [History] atorvaSTATin [Lipitor] 10 mg PO BEDTIME 05/04/19 [History] Acetaminophen [Tylenol] 650 mg PO Q4H PRN tablet 05/09/19 [Rx] Bisacodyl [Dulcolax] 5 mg PO DAILY PRN tablet 05/09/19 [Rx] Cyclobenzaprine [Flexeril] 10 mg PO BID PRN #40 tablet 05/09/19 [Rx] Docusate Sodium [Colace] 100 mg PO BID cap 05/09/19 [Rx] Magnesium Hydroxide [Milk of Magnesia] 30 ml PO BID PRN cup 05/09/19 [Rx] Sennosides [Senna] 8.6 mg PO BID PRN tablet 05/09/19 [Rx] Tapentadol [Nucynta] 50 - 100 mg PO Q4H PRN #60 tablet 05/09/19 [Rx] Patient Handouts: Surgical Site Infections FAQs - [place], Apixaban oral tablets Referrals: Johana Fitzpatrick PA-C [Physician Protein Chemist] - (1. Follow-up with Johana Fitzpatrick PA-C on Thursday, May 16, 2019 at 9:00am. 2. Follow-up with Johana Fitzpatrick PA-C on Thursday, May 23, 2019 at 9:00am. 1. Follow-up with Johana Fitzpatrick PA-C on Thursday, June 27, 2019 at 9:00am.) - Discharge Summary/Plan Comment DC Time >30 min.: No - Patient Data Vitals - Most Recent: Last Vital Signs Temp 98.1 F 05/09/19 09:21 Pulse 73 05/09/19 12:16 Resp 14 05/09/19 12:16 BP 129/71 05/09/19 12:34 Pulse Ox 93 L 05/09/19 12:16 Weight - Most Recent: 270 lb 11.2 oz Med Orders - Current: Current Medications Discontinued Medications Acetaminophen (Tylenol) 650 mg PO Q4H PRN PRN Reason: Pain Last Admin: 05/09/19 09:24 Dose: 650 mg Albuterol (Proventil Neb Soln) 2.5 mg NEB ONETIME ONE Stop: 05/08/19 00:02 Last Admin: 05/08/19 13:10 Dose: Not Given Apixaban (Eliquis) 5 mg PO BID [facility] Last Admin: 05/09/19 09:25 Dose: 5 mg Bisacodyl (Dulcolax) 5 mg PO DAILY PRN PRN Reason: Constipation Morphine Sulfate 8 mg/Epinephrine HCl 0.3 mg/Cefuroxime Sodium 750 mg/Ketorolac Tromethamine 30 mg/Sodium Chloride 27.9 ml 0 mg .XX ONETIME ONE Stop: 05/08/19 07:46 Last Admin: 05/08/19 13:10 Dose: Not Given Cyclobenzaprine HCl (Flexeril) 10 mg PO TID PRN PRN Reason: Spasms Last Admin: 05/09/19 05:01 Dose: 10 mg Diphenhydramine HCl (Benadryl) 25 mg IVPUSH Q6H PRN PRN Reason: pruritis Stop: 05/08/19 11:00 Docusate Sodium (Colace) 100 mg PO BID [facility] Last Admin: 05/09/19 09:25 Dose: 100 mg Ephedrine Sulfate (Ephedrine Sulfate) 5 mg IVPUSH ASDIRECTED PRN PRN Reason: Hypotension Stop: 05/08/19 11:00 Famotidine (Pepcid) 20 mg PO Q12H SARATH Famotidine (Pepcid) 20 mg PO BEDTIME [facility] Last Admin: 05/08/19 20:20 Dose: 20 mg Fentanyl (Sublimaze) 50 mcg IVPUSH Q5M PRN PRN Reason: Pain Stop: 05/08/19 11:00 Hydromorphone HCl (Dilaudid) 0.5 mg IVPUSH Q15M PRN PRN Reason: Pain (severe 7-10) Stop: 05/08/19 11:00 Lactated Ringer's (Ringers, Lactated) 1,000 mls @ 125 mls/hr IV ASDIRECTED [facility] Last Admin: 05/08/19 06:25 Dose: 125 mls/hr Cefazolin Sodium/Dextrose 2 gm (/ Premix) 50 mls @ 100 mls/hr IV Q8H SARATH Stop: 05/09/19 07:59 Last Admin: 05/09/19 06:39 Dose: Not Given Phenylephrine HCl 1 mg/ Sodium (Chloride) 10.1 mls @ 1 mls/sec IV TITRATE [facility]; Protocol Stop: 05/08/19 11:00 Ketorolac Tromethamine (Toradol) 15 mg IVPUSH Q6H PRN PRN Reason: Pain Last Admin: 05/09/19 05:00 Dose: 15 mg Lidocaine/Sodium Bicarbonate (Buffered Lidocaine 1% In Ns 8.4%) 0.25 ml IDERM ONETIME PRN PRN Reason: Prior to IV Start Last Admin: 05/08/19 06:24 Dose: 0.25 ml Loratadine (Claritin) 10 mg PO DAILY [facility] Last Admin: 05/09/19 09:25 Dose: 10 mg Magnesium Hydroxide (Milk Of Magnesia) 30 ml PO BID PRN PRN Reason: Constipation Melatonin (Melatonin) 9 mg PO 1900 [facility] Last Admin: 05/08/19 18:39 Dose: 9 mg Metoprolol Succinate (Toprol Xl) 25 mg PO DAILY [facility] Last Admin: 05/09/19 09:25 Dose: 25 mg Morphine Sulfate (Morphine) 2 mg IVPUSH Q2H PRN PRN Reason: Pain Last Admin: 05/08/19 20:21 Dose: 2 mg Naloxone HCl (Narcan) 0.1 mg IVPUSH Q5M PRN PRN Reason: Oversedation Non-Formulary Medication (Amoxicillin [Amoxicillin]) 500 mg PO ASDIRECTED PRN PRN Reason: Other Ondansetron HCl (Zofran) 4 mg IVPUSH Q6H PRN PRN Reason: Nausea/Vomiting Ondansetron HCl (Zofran) 4 mg IVPUSH ONETIME PRN PRN Reason: Nausea/Vomiting Stop: 05/08/19 11:00 Pantoprazole Sodium (Protonix) 40 mg PO DAILY [facility] Last Admin: 05/09/19 09:25 Dose: 40 mg Senna (Senna) 8.6 mg PO BID PRN PRN Reason: Constipation Sodium Chloride (Saline Flush) 10 ml FLUSH ASDIRECTED PRN PRN Reason: Keep Vein Open Sumatriptan Succinate (Imitrex) 25 mg PO ASDIRECTED PRN PRN Reason: Migraine Tapentadol (Nucynta) 50 - 100 mg PO Q4H PRN PRN Reason: Pain Last Admin: 05/09/19 10:23 Dose: 100 mg Vitamin B Complex/Vitamin C (Super B With Vitamin C) 2 cap PO DAILY [facility] Last Admin: 05/09/19 09:25 Dose: 2 cap
--- NOTE | 2019-05-11 11:57 | OR ---
DATE OF OPERATION: 05/08/2019 SURGEON: Miky Jimenes MD OPERATION PERFORMED: Right total knee arthroplasty. PREOPERATIVE DIAGNOSIS: Right knee osteoarthrosis. POSTOPERATIVE DIAGNOSIS: Right knee osteoarthrosis. ANESTHESIA: Local MAC with spinal. ANESTHESIA PROVIDER: Raisa Vasquez CRNA. PATHOLOGY TECH: Johana Fitzpatrick PA-C, and Valeria Fernando LPN. ESTIMATED BLOOD LOSS: 5 mL. COMPLICATIONS: None. CONDITION: Stable. IMPLANTS: 1. Dominic size 5 cemented PS femur. 2. Dominic size 5 cemented universal tibial baseplate. 3. Dominic size 5 9 mm PS X3 polyethylene. 4. Dominic size 32 x 10 mm cemented asymmetric patella. DESCRIPTION OF PROCEDURE: The patient was identified in the preop holding area. Proper site was marked and identified by the surgeon. The patient was taken back to the operating theater. After adequate anesthesia, the patient's right lower extremity had a nonsterile tourniquet applied and it was sterilely prepped and draped in the usual sterile fashion. OR time-out was performed. The patient received 2 g IV Ancef. At this time, the right lower extremity was exsanguinated. Tourniquet was insufflated to 300 mmHg. Standard medial parapatellar incision was made. Medial parapatellar arthrotomy was created. Deep fibers of the MCL were raised and anterior fat pad was resected. At this time, attention was turned to the patella. Patella measured 24, it was resected to a 14 for 32 x 10 mm patella. Drill holes were then drilled and found to be in adequate position. The drill was then drilled in the distal femur and the intramedullary distal femoral cutting guide was then placed. 8 mm was resected off the distal femur and was found to be an adequate resection. Sizing guide was placed. It was found to be a size 5 cemented PS femur that was shown on the implant record at the beginning of this dictation. The drill holes were drilled for the epicondylar axis using [place] line and epicondyles as reference. At this time, the 4-in-1 cutting block was placed. An anterior posterior and anterior and posterior chamfer cuts were then completed. Box cut was completed at this time. Attention was turned to the tibia. The posterior medial lateral retractors were placed. The extramedullary tibial guide was placed. It was placed in the old footprint of the ACL. It was aligned with the center of the ankle and 0 degrees of slope, 9 mm was then resected off the unaffected side. There was found to be an acceptable reduction. At this time, posterior osteophytes were removed along with medial and lateral meniscus. A trial implant was placed with a correct sized tibia that was mentioned at the beginning of the dictation. A Dominic trial size 5 9 mm PS X3 polyethylene insert was then placed. The patient's knee was brought through range of motion. The patella was tracking centrally and was stable to varus and valgus stress. Alignment was found to be roughly at 0 degrees. The tibia was stamped and drilled in proper rotation. The universal tibial base plate was impacted in place. Next, the [place] size 5 cemented PS femur impacted into place and the Dominic size 5 9 mm PS X3 polyethylene insert was placed. Excess cement was removed. The patient's knee was brought into full extension. The patella was then cemented in place at this time. One liter dilute Betadine solution was irrigated through the knee along with 3 L of pulse lavage irrigation with Ancef. Periarticular injection was then completed. The patient's knee was brought through a range of motion. Once the cement had time to set up and it was found to be stable to varus valgus stress, the patella was tracking centrally with full range of motion. At this time, a #2 barbed suture was used for closure of the medial parapatellar arthrotomy. Topical tranexamic acid was placed. 2-0 Vicryl was used subcutaneously, Prineo was used for the skin. The patient tolerated the procedure well and was sent to the PACU in stable condition. GHULAM /[id number] LEONARD
== END 2019-05-09 13:42 | disposition home or self-care (01) | DRG 470 ==
LOC: JD.MS 05:51
PROVIDERS: ADMIT Orthopaedic Surgery; ATTEND Orthopaedic Surgery
PROC: 0SRC0J9 Replacement of Right Knee Joint with Synthetic Substitute, Cemented, Open Approach (ICD-10-PCS; principal; 2019-05-08)
DX: M17.11 Unilateral primary osteoarthritis, right knee (principal); I48.20 Chronic atrial fibrillation, unspecified; I42.8 Other cardiomyopathies; Q21.1 Atrial septal defect; G47.33 Obstructive sleep apnea (adult) (pediatric); I25.10 Atherosclerotic heart disease of native coronary artery without angina pectoris; E78.00 Pure hypercholesterolemia, unspecified; I10 Essential (primary) hypertension; E78.5 Hyperlipidemia, unspecified; G47.00 Insomnia, unspecified; G25.81 Restless legs syndrome; K21.9 Gastro-esophageal reflux disease without esophagitis; G43.909 Migraine, unspecified, not intractable, without status migrainosus; I27.20 Pulmonary hypertension, unspecified; R60.0 Localized edema; I07.1 Rheumatic tricuspid insufficiency; Z99.81 Dependence on supplemental oxygen; Z79.01 Long term (current) use of anticoagulants; Z95.0 Presence of cardiac pacemaker; Z88.5 Allergy status to narcotic agent; Z88.2 Allergy status to sulfonamides; Z79.899 Other long term (current) drug therapy; Z87.01 Personal history of pneumonia (recurrent); Z87.440 Personal history of urinary (tract) infections; Z90.49 Acquired absence of other specified parts of digestive tract; Z90.710 Acquired absence of both cervix and uterus; Z98.51 Tubal ligation status; Z88.8 Allergy status to other drugs, medicaments and biological substances
CPT/HCPCS: 01402; 36415; 64450; 80053; 85027; 85730; 87641; 93005; 93971-26-RT; 93971-RT; 97110-GP; 97116-GP; 97161-GP; 97165-GO; 97535-GO; A9270-GY; C1713; C1776; J0171; J0690; J0697; J1885; J2270; J7120

== ENCOUNTER 2024-06-04 22:25 | Emergency (ER) | payer MEDICARE, OTHER ==
[2024-06-04] MEDS ORDERED: Sodium Chloride 0.9% 10 ML Syringe FLUSH PRN ×2 (22:52→22:54)
[2024-06-04 23:13] LABS: APPEARANCE,URINE CLEAR (Clear); BILIRUBIN,URINE NEGATIVE (Negative); COLOR,URINE LIGHT YELLOW (Yellow); GLUCOSE,URINE NEGATIVE (Negative); KETONES,URINE NEGATIVE (Negative); LEUKOCYTE ESTERASE,URINE NEGATIVE (Negative); NITRITE,URINE NEGATIVE (Negative); OCCULT BLOOD,URINE NEGATIVE (Negative); PH,URINE 6.5 (5.0-8.0); PROTEIN,URINE NEGATIVE (Negative); UROBILINOGEN,URINE 0.2 (0.2-1.0)
[2024-06-04 23:15] LABS: BASOPHILS ABSOLUTE AUTO 0.1 K/mm3 (0.0-0.2); BASOPHILS PERCENT AUTO 0.9 % (0.0-1.0); EOSINOPHILS ABSOLUTE AUTO 0.1 K/mm3 (0.0-0.4); EOSINOPHILS PERCENT AUTO 0.9 % (0.0-6.0); HEMATOCRIT 40.6 % (37.0-47.0); HEMOGLOBIN 13.6 gm/dl (12.0-16.0); IMMATURE GRAN ABSOLUTE AUTO 0.03 K/mm3 (0.00-0.05); IMMATURE GRAN PERCENT AUTO 0.4 % (0.0-0.4); LYMPHOCYTES ABSOLUTE AUTO 1.3 K/mm3 (1.0-4.8); LYMPHOCYTES PERCENT AUTO 19.3 % (24.0-44.0); MEAN CORPUSCULAR HEMOGLOBIN 30.4 pg (28.0-32.0); MEAN CORPUSCULAR HGB CONC 33.5 g/dl (32.0-36.0); MEAN CORPUSCULAR VOLUME 90.8 fl (83.0-99.0); MEAN PLATELET VOLUME 9.8 fl (9.4-12.3); MONOCYTES ABSOLUTE AUTO 0.5 K/mm3 (0.0-0.8); MONOCYTES PERCENT AUTO 7.6 % (0.0-8.0); NEUTROPHILS ABSOLUTE AUTO 4.8 K/mm3 (1.8-7.7); NEUTROPHILS PERCENT AUTO 70.9 % (41.0-71.0); PLATELET COUNT,PLT 228 K/mm3 (150-400); RED BLOOD CELL COUNT 4.47 M/mm3 (4.10-5.30); WHITE BLOOD CELL COUNT,WBC 6.83 K/mm3 (3.9-11.3)
[2024-06-04 23:21] LABS: ANION GAP 14.8 (5-15); BILIRUBIN TOTAL 0.7 mg/dL (0.2-1.0); CALCIUM 9.3 mg/dL (8.5-10.1); EST CRCL DRUG DOSING (CG) 55.91 mL/min; MAGNESIUM 1.9 mg/dL (1.8-2.4); POTASSIUM,K 3.8 mEq/L (3.5-5.1); PROTEIN TOTAL,TP 7.9 g/dl (6.4-8.2)
[2024-06-04] MEDS ORDERED: Iopamidol 612 MG/ML 100 ML Bottle IVPUSH ONE (23:25)
[2024-06-04] MEDS ORDERED: Iopamidol 755 Mg/ML 100 ML Bottle IVPUSH ONE (23:28)
[2024-06-04] MEDS: Iopamidol 755 Mg/ML 100 ML Bottle IVPUSH ONE (23:28)
[2024-06-04] MEDS: Sodium Chloride 0.9% 500 ML IV SCH (23:50)
[2024-06-05] MEDS ORDERED: Piperacillin/Tazobactam 4.5 GM in Sodium Chloride 0.9% 100 ML IV ONE (09:00)
== END 2024-06-05 01:32 ==
LOC: JD.ED 22:25
DX: I65.09 Occlusion and stenosis of unspecified vertebral artery (principal); R42 Dizziness and giddiness; I10 Essential (primary) hypertension; I48.91 Unspecified atrial fibrillation; K21.9 Gastro-esophageal reflux disease without esophagitis; Z95.0 Presence of cardiac pacemaker; Z79.899 Other long term (current) drug therapy; Z79.01 Long term (current) use of anticoagulants; Z88.8 Allergy status to other drugs, medicaments and biological substances; Z88.1 Allergy status to other antibiotic agents; Z88.2 Allergy status to sulfonamides; Z88.5 Allergy status to narcotic agent
CPT/HCPCS: 36415; 70450; 70496; 70498; 80053; 81003; 82947; 83735; 84484; 85025; 93005; 96360; 99285; J7040; Q9967

== ENCOUNTER 2025-01-31 10:59 | Day surgery (SDC) | payer MEDICARE, OTHER ==
[~2025-01-31 10:59] MED LIST changes: -Albuterol 0.083% 2.5 MG/3 ML Neb Soln NEB ONE; -Lactated Ringers 1,000 ML IV SCH; -Lidocaine 1%/Sod Bicarbonate in NS 8.4% 1 ML Syringe IDERM PRN; +Sodium Chloride 0.9% 10 ML Syringe FLUSH SCH
[2025-01-31] MEDS ORDERED: Ketamine 200 MG/20 ML MDV ONE (12:02)
[2025-01-31] MEDS: Lactated Ringers 1,000 ML IV SCH (12:02)
[2025-01-31] MEDS ORDERED: Propofol 200 MG/20 ML SDV ONE ×2 (12:02→13:44)
[2025-01-31] MEDS ORDERED: Lidocaine 1% 4 ML ONE (13:00)
== END 2025-01-31 15:03 | disposition home or self-care (01) ==
LOC: JD.SDS 10:59
PROVIDERS: ATTEND Surgery
DX: D64.9 Anemia, unspecified (principal); D12.2 Benign neoplasm of ascending colon; K57.30 Diverticulosis of large intestine without perforation or abscess without bleeding; K21.9 Gastro-esophageal reflux disease without esophagitis; I10 Essential (primary) hypertension; E78.5 Hyperlipidemia, unspecified; Z79.899 Other long term (current) drug therapy; Z88.5 Allergy status to narcotic agent; Z88.6 Allergy status to analgesic agent; Z88.8 Allergy status to other drugs, medicaments and biological substances
CPT/HCPCS: 43239; 45380; 88305; J2003; J2704; J3490; J7120; 00813

== ENCOUNTER 2025-02-02 17:22 | Emergency (ER) | payer MEDICARE, OTHER ==
[2025-02-02 18:33] LABS: BASOPHILS ABSOLUTE AUTO 0.1 K/mm3 (0.0-0.2); BASOPHILS PERCENT AUTO 1.3 % (0.0-1.0); EOSINOPHILS ABSOLUTE AUTO 0.1 K/mm3 (0.0-0.4); EOSINOPHILS PERCENT AUTO 1.5 % (0.0-6.0); IMMATURE GRAN ABSOLUTE AUTO 0.03 K/mm3 (0.00-0.05); IMMATURE GRAN PERCENT AUTO 0.6 % (0.0-0.4); LYMPHOCYTES ABSOLUTE AUTO 1.2 K/mm3 (1.0-4.8); LYMPHOCYTES PERCENT AUTO 22.8 % (24.0-44.0); MEAN CORPUSCULAR HEMOGLOBIN 18.4 pg (28.0-32.0); MEAN CORPUSCULAR HGB CONC 27.7 g/dl (32.0-36.0); MEAN CORPUSCULAR VOLUME 66.3 fl (83.0-99.0); MEAN PLATELET VOLUME 9.5 fl (9.4-12.3); MONOCYTES ABSOLUTE AUTO 0.5 K/mm3 (0.0-0.8); MONOCYTES PERCENT AUTO 9.3 % (0.0-8.0); NEUTROPHILS ABSOLUTE AUTO 3.4 K/mm3 (1.8-7.7); NEUTROPHILS PERCENT AUTO 64.5 % (41.0-71.0); PLATELET COUNT,PLT 236 K/mm3 (150-400); RED BLOOD CELL COUNT 3.92 M/mm3 (4.10-5.30); WHITE BLOOD CELL COUNT,WBC 5.27 K/mm3 (3.9-11.3)
[2025-02-02 18:36] LABS: HEMOGLOBIN 7.2 gm/dl (12.0-16.0)
[2025-02-02 19:03] LABS: INR 1.1; PROTHROMBIN TIME 11.6 SECONDS (9.7-12.0)
[2025-02-02 19:06] LABS: ALBUMIN 3.5 g/dl (3.4-5.0); ANION GAP 12.2 (5-15); BILIRUBIN TOTAL 0.8 mg/dL (0.2-1.0); BUN/CREATININE RATIO 15.6 (14-18); CALCIUM 8.9 mg/dL (8.5-10.1); CREATININE 0.9 mg/dL (0.55-1.02); EST CRCL DRUG DOSING (CG) 63.15 mL/min; POTASSIUM,K 4.2 mEq/L (3.5-5.1); PROTEIN TOTAL,TP 6.9 g/dl (6.4-8.2)
[2025-02-02] MEDS: Sodium Chloride 0.9% 1,000 ML IV SCH (20:22)
[2025-02-02] MEDS: Sodium Chloride 0.9% 10 ML Syringe FLUSH STA (20:25)
== END 2025-02-02 22:29 | disposition home or self-care (01) ==
LOC: JD.ED 17:22
DX: D64.9 Anemia, unspecified (principal); I48.91 Unspecified atrial fibrillation; I10 Essential (primary) hypertension; K21.9 Gastro-esophageal reflux disease without esophagitis; Z86.16 Personal history of COVID-19; Z88.1 Allergy status to other antibiotic agents; Z88.2 Allergy status to sulfonamides; Z88.8 Allergy status to other drugs, medicaments and biological substances; Z88.5 Allergy status to narcotic agent; Z79.01 Long term (current) use of anticoagulants; Z79.899 Other long term (current) drug therapy
CPT/HCPCS: 36415; 36430; 80053; 82550; 83735; 85025; 85610; 86850; 86900; 86901; 86922; 96360; 96361; 99284; J7030; P9016

== ENCOUNTER 2025-02-17 03:13 | Emergency (ER) | payer MEDICARE, OTHER ==
[2025-02-17] MEDS ORDERED: Sodium Chloride 0.9% 10 ML Syringe FLUSH PRN (04:40)
[2025-02-17 04:45] LABS: BASOPHILS ABSOLUTE AUTO 0.1 K/mm3 (0.0-0.2); BASOPHILS PERCENT AUTO 1.4 % (0.0-1.0); EOSINOPHILS ABSOLUTE AUTO 0.2 K/mm3 (0.0-0.4); EOSINOPHILS PERCENT AUTO 2.9 % (0.0-6.0); IMMATURE GRAN ABSOLUTE AUTO 0.04 K/mm3 (0.00-0.05); IMMATURE GRAN PERCENT AUTO 0.6 % (0.0-0.4); LYMPHOCYTES ABSOLUTE AUTO 1.6 K/mm3 (1.0-4.8); LYMPHOCYTES PERCENT AUTO 21.7 % (24.0-44.0); MEAN PLATELET VOLUME 8.7 fl (9.4-12.3); MONOCYTES ABSOLUTE AUTO 0.8 K/mm3 (0.0-0.8); MONOCYTES PERCENT AUTO 10.5 % (0.0-8.0); NEUTROPHILS ABSOLUTE AUTO 4.5 K/mm3 (1.8-7.7); NEUTROPHILS PERCENT AUTO 62.9 % (41.0-71.0); NRBC ABSOLUTE 0.00 (0.00-0.02); NRBC PERCENT 0.0 % (0.0-0.2); PLATELET COUNT,PLT 261 K/mm3 (150-400); RED BLOOD CELL COUNT 4.33 M/mm3 (4.10-5.30); WHITE BLOOD CELL COUNT,WBC 7.14 K/mm3 (3.9-11.3)
[2025-02-17 05:10] LABS: A/G RATIO 1.0 (1-2); ALANINE AMINOTRANSFERASE,ALT 25.0 U/L (14-59); ASPARTATE AMNIOTRANSFERASE,AST 17.0 U/L (15-37); BILIRUBIN TOTAL 0.5 mg/dL (0.2-1.0); BLOOD UREA NITROGEN,BUN 15.0 mg/dL (7-18); CARBON DIOXIDE,CO2 31.0 mEq/L (21-32); CHLORIDE,CL 104.0 mEq/L (98-107); CREATININE 0.9 mg/dL (0.55-1.02); EST CRCL DRUG DOSING (CG) 61.1 mL/min; ESTIMATED GFR 68.0 mL/min (>60); GLUCOSE RANDOM 104.0 mg/dL (70-99); POTASSIUM,K 4.1 mEq/L (3.5-5.1); PROTEIN TOTAL,TP 6.9 g/dl (6.4-8.2); SODIUM,NA 138.0 mEq/L (136-145)
[2025-02-17 05:12] LABS: APPEARANCE,URINE CLEAR (Clear); GLUCOSE,URINE NEGATIVE (Negative); OCCULT BLOOD,URINE NEGATIVE (Negative)
[2025-02-17] MEDS: Sodium Chloride 0.9% 10 ML Syringe FLUSH PRN (05:35)
[2025-02-17] MEDS: Iopamidol 755 Mg/ML 100 ML Bottle IVPUSH ONE (05:35)
== END 2025-02-17 07:44 | disposition home or self-care (01) ==
LOC: JD.ED 03:13
DX: D64.9 Anemia, unspecified (principal); N39.0 Urinary tract infection, site not specified; I10 Essential (primary) hypertension; I48.91 Unspecified atrial fibrillation; K21.9 Gastro-esophageal reflux disease without esophagitis; Z95.0 Presence of cardiac pacemaker; Z88.8 Allergy status to other drugs, medicaments and biological substances; Z79.899 Other long term (current) drug therapy; Z79.01 Long term (current) use of anticoagulants; Z79.02 Long term (current) use of antithrombotics/antiplatelets; Z86.16 Personal history of COVID-19; Z90.49 Acquired absence of other specified parts of digestive tract; Z90.710 Acquired absence of both cervix and uterus
CPT/HCPCS: 36415; 70450; 70496; 70498; 80053; 81001; 82272; 83735; 84484; 85025; 87086; 87088; 87186; 93005; 96360; 96361; 99284; A9270; J7030; Q9967